=== PATIENT | male | born 1955 | race Caucasian/White ===

== ENCOUNTER 2016-08-06 13:20 | Inpatient (IN) | payer OTHER ==
[~2016-08-06] VITALS: Ht 190.5 cm; Wt 111.8 kg
--- NOTE | ~2016-08-06 | CATH ---
Cardiac Diagnostic Report Demographics Patient Name DIANE Arvizu Gender Male Date of 1955 Age 61 year(s) Patient Number [id number] Date of Study 08/06/2016 Visit Number [id number] Room Number 308 Corporate ID Ht 190.5 cm Wt 113.4 kg Accession Number [id number] BSA 2.41 m kg/m Referring Glenda Moser MD Primary Physician Physician Paula Mcginnis MD Performing Paula Mcginnis MD Secondary Physician Physician Diagnostic Paula Mcginnis MD Assisting Physician Physician Interventional Physician Tenter Frame Back Tender Physician Findings and Conclusions Diagnostic Findings and Conclusion Normal coronary arteries. Normal LVEDP. Diagnostic Recommendations Workup further etiology of vtach. Procedure Description The patient was brought to the diagnostic cardiac catheterization laboratory in the fasting, non-sedated state. Informed consent was obtained in the written and verbal form after the risks and benefits were explained. The patient had no further questions and agreed to proceed. The planned puncture-incision site(s) were clipped and prepped with ChloraPrep and draped in the usual sterile manner. Conscious sedation, supplemental oxygen, and pain control medications were delivered by a registered nurse under physician guidance. Surface ECG rhythm, blood pressure measurement, and pulse oximetry were monitored throughout the procedure. Arterial access. Theright radial access site was infiltrated with lidocaine. The vessel was entered with the Seldinger technique. A 6F sheath was advanced into the vessel and used for catheter placement. Selective left coronary angiography. A JL3.5 catheter was advanced into the left coronary vessel ostium under Fluoroscopic guidance. Contrast was injected by hand. Images were obtained in multiple projections. Selective right coronary angiography. A JR4 catheter was advanced into the right coronary vessel ostium under fluoroscopic guidance. Contrast was injected by hand. Images were obtained in multiple projections. Left heart catheterization with ventriculography. An angled pigtail catheter was advanced across the aortic valve to the left ventricle under fluoroscopic guidance. Resting hemodynamics were obtained. With the catheter at the left ventricular apex, contrast was injected. Images were obtained in NAMIBIAN projections. Post-ventriculography LV pressure was obtained. The catheter was gradually withdrawn into the aorta with continuous pressure recording. Hemostasis: The sheath was removed and a TR Band was placed. Hemostasis was achieved. The patient was transferred to the ICU nursing floor via cart accompanied by a nurse. The patient left the laboratory in stable condition. Procedure Procedure Type Diagnostic procedure:Ventriculogram:, Left, Angiography:, Coronary Angios w/[facility] The procedure was explained in detail to the patient. Risks, complications and alternative treatments were reviewed. Written consent was obtained. Medications Reviewed with Patient prior to Procedure. Complications: No Complication. Angiographic Findings Dominance: Right Cardiac Arteries and Lesion Findings LMCA: Normal (0% Stenosis). LAD: Normal (0% Stenosis). LCx: Normal (0% Stenosis). RCA: Normal (0% Stenosis). Procedure Data Procedure Date Date: 08/06/2016Start: 03:20 PMEnd: 03:55 PM Entry Locations - Percutaneous access was performed through the Right Radial artery (Primary location). A 6 Fr sheath was inserted. Hemostasis was successfully obtained using a TR band. Procedure Medications Order and Administration + + +-------+-------+ !Time !Medication !Dosage !Route ! + + +-------+-------+ !08/06/2016 !Versed !1 mg !I.V. ! !03:22 PM ! ! ! ! + + +-------+-------+ !08/06/2016 !Fentanyl !50 mcg !I.V. ! !03:22 PM ! ! ! ! + + +-------+-------+ !08/06/2016 !Sodium Chloride !10 ml !I.V. ! !03:22 PM ! ! ! ! + + +-------+-------+ !08/06/2016 !SF Radial Cocktail: 200mcg Nitro, 2.5 mg ! !I.A. ! !03:22 PM !Verapamil, 5000u Heparin ! ! ! + + +-------+-------+ Devices Used - A6 FrCATH 6FR FL3.5 CATHETER 100CMwas used for:LeftsideCoronary Angios. - A5.5 FrCATH 6F FR4 CATHETER 100CMwas used for:RightsideCoronary Angios. - A6 FrCATH 6FR PIG 145 110CM CATHETERwas used for:LeftsideLV Pressures. Contrast Material - Isovue 69842 ml Fluoroscopy Time: Diagnostic: 5:06 minutes. Total: 5:06 minutes. Fluoroscopy Dose: Diagnostic: 796 mGy. Total: 796 mGy. Estimated Blood Loss: 8 ml. Medical History Allergies - No known allergies. Risk Factors The patient risk factors include:diabetes mellitus, last creatinine: 1.3 mg/dl and creatinine clearance: 93.29 ml/min. Admission Data Admission Date: 08/06/2016 Admission Time: 04:09 PM Insurance Payors: None. VA LV function assessed as:Normal. Ejection Fraction - 08/06/2016 - Method: LV gram. EF%: 65. LVA Segment Contractility 1 - Normal 3 - Mild 5 - Severe 7 - Dyskinesis hypokinesis hypokinesis 2 - 4 - Moderate 6 - Akinesis 8 - Aneurysm Hypokinesis hypokinesis Hemodynamics Condition: Rest O2 Consumption: Estimated: 290.37Heart Rate: 79 bpm Pressures (mmHg) +-----+ + !Site !Pressure ! +-----+ + !AO !111/76 (92) ! +-----+ + !LV !112/6 ,33 ! +-----+ + !LV !122/5 ,13 ! +-----+ + !LV !117/6 ,13 ! +-----+ + !AO !112/65 (85) ! +-----+ + !LV !113/5 ,11 ! +-----+ + Valve Gradients and Areas + +---------+---------+---------+ +---------+ + !Valve !Peak !Mean !Area !Index !Flow !Source ! + +---------+---------+---------+ +---------+ + !Aortic !0 !0 ! ! ! ! ! + +---------+---------+---------+ +---------+ + !Aortic !0 !0 ! ! ! ! ! + +---------+---------+---------+ +---------+ + Shunts Oxygen Values O2 Capacity 195.84 O2 Consumption 290.37 Discharge Data Discharge Date: 08/08/2016 Hospital Status: Inpatient Signatures
--- NOTE | ~2016-08-06 | ECH ---
Transthoracic Echocardiography Report (TTE) Demographics Patient Name ALISSA CONTRERAS Date of Study 08/07/2016 Patient Number [id number] Visit Number [id number] Date of 1955 Room Number 308 Accession Number [id number] Gender Male Age 61 year(s) Referring Glenda Moser MD Converter Skimmer Mary Mane [facility] Physician Physician Jen Thornton MD Research Electrician Physician Hero Supervising Ordering Physician Paula Mcginnis MD, MD/P Nurse Stress Scrap Charger Conclusions Contractility Score Summary Normal Left Ventricular contractility was noted. Summary Technically adequate exam. The estimated left ventricular ejection fraction is 50-55%. Mild left ventricular hypertrophy. Diastolic assessment reveals Grade II pseudonormal diastolic function . The left atrium is moderately dilated by LA volume index measurement. Mild tricuspid regurgitation by color Doppler. There is mild pulmonary hypertension. The pulmonary pressure (RVSP) is 35 mmHg. Recommendation The patient was given the results of the exam during their hospital stay. Procedure Type of Study TTE procedure:Echo Complete SF. Procedure Date Date: 08/07/2016 Start: 09:43 AM End: 10:13 AM Technical Quality: Adequate visualization Indications:Ventricular Tachycardia. Appropriate Use Criteria: 9 Height: 75 inches Weight: 250 pounds BSA: 2.41 m Rhythm: Within normal limits HR: 67 bpm BP: 142/87 mmHg Allergies - No known allergies. M-Mode/2D Measurements LV Diastolic Dimension: 5.02 cm LV Systolic Dimension: 3.43 cm LV Septum Diastolic: 1.08 cm LV PW Diastolic: 1.17 cm AO Root Dimension: 2.92 cm Cardiac Output: 4.86 l/min LA Dimension: 4.38 cm Cardiac Index: 2.02 l/min*m RV Diastolic Dimension: 4.18 cm LA volume index: 42 ml/m LVOT: 2.46 cm IVC Inspiration: 1.96 cm LVOT VTI: 15.28 cm RV Base: 3.99 cm LV Stroke volume: 72.59 ml RV Mid: 3.48 cm LV Stroke volume index: 30.12 ml/m RV Length: 7.5 cm TAPSE: 2.5 cm Doppler Measurements AV Peak Velocity: 1.3 m/s MV Peak E-Wave: 0.77 m/s AV Peak Gradient: 6.76 mmHg MV Peak A-Wave: 0.55 m/s AV Mean Gradient: 4.35 mmHg MV E/A Ratio: 1.39 LVOT Peak Velocity: 0.83 m/s MV P1/2t: 54.9 msec AV Area (Continuity):2.87 cm MV Deceleration Time: 182.3 msec TR Velocity:2.63 m/s MV Area (PHT): 4.01 cm TR Gradient:27.62 mmHg PV Peak Velocity: 0.97 m/s Estimated RAP:8 mmHg PV Peak Gradient: 3.77 mmHg Estimated RVSP: 36 mmHg Estimated PASP: 35.62 mmHg RA Area: 15.72 cm Findings Left Ventricle The left ventricle is normal in size . Mild left ventricular hypertrophy. Diastolic assessment reveals Grade II pseudonormal diastolic function . Right Ventricle Normal right ventricle structure and function. Left Atrium The left atrium is moderately dilated by LA volume index measurement. Right Atrium Normal right atrial size. Mitral Valve Mild thickening of the mitral valve leaflets. Trivial mitral regurgitation by color Doppler. Aortic Valve The aortic valve is mildly sclerotic. Tricuspid Valve Normal appearing tricuspid valve. Mild tricuspid regurgitation by color Doppler. There is mild pulmonary hypertension. The pulmonary pressure (RVSP) is 35 mmHg. Pulmonic Valve Normal pulmonic valve structure and function. Pericardial Effusion No evidence of pericardial effusion. Miscellaneous Visualized portions of the aortic root and ascending aorta appear normal in size. Pleural Effusion No evidence of pleural effusion. Contractility Score LV regional wall motion:(0-Non visualized 1-Normal 2-Hypokinesis 3-Akinesis 4-Dyskinesis 5-Aneurysm) Signature
[2016-08-10] MEDS ORDERED: ZYLOPRIM-DPS100 MG PO (07:25)
[2016-08-10] MEDS ORDERED: DAILY MULTIPLE1 EAC1 PO (07:25)
[2016-08-10] MEDS ORDERED: GLUCOPHAGE-DPS500 MG PO (07:25)
[2016-08-10] MEDS ORDERED: BYSTOLIC5 MG PO (07:26)
[2016-08-10] MEDS ORDERED: TAMBOCOR DPS50 MG PO (07:26)
--- NOTE | 2016-08-10 11:56 | CO ---
ADMIT: 08/06/2016 RM/LOC: 308 [facility] MR#: [id number] [address] [place], [place] [address] ALISSA CONTRERAS [address] [place] [address] Consultation SEX: M AGE: 61 : 1955 DATE OF CONSULTATION: 08/06/2016 ATTENDING PHYSICIAN: Timothy Doshi CONSULTING PHYSICIAN: Jesse Mitchell MD REASON FOR CONSULT: Ventricular tachycardia. Alexandria Tomas RN, scribing for Dr. Ras Mitchell. HISTORY OF PRESENT ILLNESS: Alissa is a pleasant 61-year-old gentleman I have been asked to see in Cardiology consultation by Dr. Doshi for recurrent VT. Alissa has no prior history of coronary artery disease. He does have history of diabetes and takes oral medication for that. 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 Alissa presented to [facility] Emergency Room today with complaints of lightheadedness, loss of balance, and vision loss. He also describes left arm pain. He states that this had never happened before, however, today off and on throughout the day. He has had episodes where he has felt his heart racing, he has lost vision, and felt left arm pain at that time as well. He stated that after lunch today, he was walking with some clients outside when he lost his balance, they had to catch him. He felt lightheaded, but he did not lose consciousness. He lost vision at that time. He called his primary care physician who encouraged him to go to the emergency room. He also reports he was short of breath at that time. Currently, he denies any pain or shortness of breath unless he is having run of VT. In the ER, on monitoring, he has had multiple episodes of runs of ventricular tachycardia up to 10 beats. He has been given a bolus of amiodarone and they have ordered a drip to get started as well. His lab work has been essentially unremarkable. PAST MEDICAL HISTORY: Diabetes and gout. PAST SURGICAL HISTORY: Left total knee arthroplasty three years ago. ALLERGIES: NO KNOWN MEDICATION ALLERGIES. MEDICATIONS: Current medications include metformin 500 p.o. b.i.d., allopurinol 100 p.o. daily. FAMILY HISTORY: Positive family history, father having multiple myocardial infarctions. He felt he had five before he , and mom had coronary artery disease as well as valvular disease. SOCIAL HISTORY: Alissa is . He has three boys and four grand kids. He drinks about a pot of coffee a day. He denies any special diet at home. He denies any alcohol, tobacco, or drug use. He quit smoking about 8 years ago after 20 years of smoking cigarettes, and multiple drugs, he quit about 10 years ago. He denies any alcohol for about 10 years as well. ADMIT: 08/06/2016 RM/LOC: 308 [facility] MR#: [id number] [address] [place] [id number] ALISSA CONTRERAS [address] [place] [address] Consultation SEX: M AGE: 61 : 1955 REVIEW OF SYSTEMS: GENERAL: Denies fatigue, fever, chills, sweats, rash, or weight loss. EYES: History of cataracts and glasses. ENT: Denies hearing loss or problems with nose, mouth or throat. PULMONARY: Denies cough, sputum production, asthma, emphysema or bronchitis. Denies snoring loudly, wakefulness at night, or fatigue upon awakening. GASTROINTESTINAL: Denies heartburn or difficulty swallowing. No change in bowel habits. Denies dark or bloody stools. No history of ulcers, hiatal hernia, or gallbladder or liver disease. GENITOURINARY: Denies dysuria, hematuria, nocturia, urinary tract infection, or kidney stones. Denies history of renal insufficiency or failure. MUSCULOSKELETAL: History of osteoarthritis and gout. ENDOCRINE: Positive for diabetes. Denies thyroid disease. HEMATOLOGIC: Denies history of anemia, easy bruising, or cancer. NEUROLOGIC: Denies chronic headaches, dizziness, syncope, stroke, seizures or numbness or tingling. PSYCHIATRIC: Denies history of mental illness or feelings of depression. PHYSICAL EXAMINATION: VITAL SIGNS: Blood pressure 155/86, heart rate 96, respirations 16, temperature 99.9, oxygenation 98% on O2. SKIN: [place], warm and dry. EYES: Sclerae clear. No xanthelasmas. ENT: Oral mucosa is pink and moist. No jugular venous distention or carotid bruits. CHEST: Respirations are even and unlabored. Lungs are clear to auscultation. HEART: Regular rate and rhythm. Normal S1, S2. No murmurs, rubs or gallops. ABDOMEN: Soft and nontender. MUSCULOSKELETAL: Gait is normal. EXTREMITIES: Peripheral pulses palpable. No clubbing, cyanosis or edema. PSYCHIATRIC: Alert and oriented. Mood and affect are appropriate. DIAGNOSTIC DATA: Sodium 139, potassium 3.9, BUN 17, creatinine 1.3, glucose 136. White blood cell count 9.1, hemoglobin 14.4, hematocrit 41.8, platelets 253. Magnesium 2.2. Troponin less than 0.015. TSH 2.51. ASSESSMENT AND PLAN: 1. Nonsustained ventricular tachycardia. 2. Near syncope. 3. Diabetes mellitus. 4. Gout. Alissa's QTC and EKG is less than 500 with his diabetes history, family history, tobacco history, and left arm pain. I would recommend having cardiac catheterization performed to rule out ischemia with his frequent runs of nonsustained VT. I would like to give him 5 mg IV Lopressor and starting amiodarone drip at this time. I discussed with the patient the risks, benefits, and alternatives of the procedure with risks including, but not limited to bleeding, infection, vessel damage, reaction to contrast dye, ADMIT: 08/06/2016 RM/LOC: 308 [facility] MR#: [id number] [address] [facility] [address] [place] [id number] ALISSA CONTRERAS [address] [place] [address] Consultation SEX: M AGE: 61 : 1955 stroke, myocardial infarction, rarely loss of life. Alissa states understanding and wishes to proceed. I will make final recommendations pending catheterization results. Thank you for the consultation. "I have read and agree with the documentation that has been completed regarding this visit. By signing this record, I attest that the documentation was completed in my physical presence and is an accurate record of the encounter." Alexandria Tomas RN / Jesse Mitchell MD / don JOB #: [id number] CC: Tmiothy Doshi, Attending Physician Timothy Doshi, Family Physician Timothy Doshi MD
--- NOTE | 2016-08-18 08:25 | ER ---
ADMIT: 08/06/2016 RM/LOC: 308 [facility] MR#: [id number] [address] [facility] [address] [place], [place] [address] ALISSA CONTRERAS [address] [place] [address] Emergency Room Report SEX: M AGE: 61 : 1955 DATE: 08/06/2016 ADDENDUM: A 61-year-old white male coming in with kind of nonspecific symptoms. [place] a little dizzy, could not see. Little episode, this would come and go. While he was here, we did catch the reason why he had the symptoms. He had several runs of nonsustained ventricular tachycardia. He was given 150 of amiodarone. Lab and chest x-ray are pending. The EKG, we did catch him a couple of times in his V-tach. I spoke with Dr. Thornton, who will come down to see him along with Dr. Doshi, his attending, who will see him in the hospital. CONDITION ON DISCHARGE: Critical, but stable at this time. Demetris Montesinos MD/ don JOB #: [id number] CC: Timothy Doshi MD, Attending Physician Timothy Doshi MD, Family Physician
--- NOTE | 2016-09-07 14:31 | DS ---
ADMIT: 08/06/2016 RM/LOC: 308 [facility] MR#: [id number] [address] [facility] [address] [place], [place] [address] ALISSA CONTRERAS [address] [place] [address] General Discharge Summary SEX: M AGE: 61 : 1955 CORRECTED: 08/28/20162013 AJ ADMISSION DATE: 08/06/2016 DISCHARGE DATE: 08/08/2016 Alexandria Tomas RN, scribing for Dr. Ras Mitchell. REASON FOR ADMISSION: Nonsustained ventricular tachycardia. PROCEDURES PERFORMED: 1. On 08/06/[address] Ras Mitchell, left heart cardiac catheterization demonstrating normal coronary arteries. 2. On 08/07/2016 echocardiogram showing ejection fraction of 50%-55%, mild LVH. FINAL DIAGNOSES: 1. RVOT tachycardia. 2. Near syncope. 3. Normal coronary arteries. DISCHARGE MEDICATION: Included: 1. Metformin 500 mg twice daily. 2. Allopurinol 100 mg daily. 3. Multivitamin 1 tab daily. 4. Bystolic 5 mg daily. 5. Tambocor 50 mg p.o. b.i.d. I have read and agree with the documentation that has been completed regarding this visit. By signing this record, I attest that the documentation was completed in my physical presence and is an accurate record of the encounter. Alexandria Tomas RN / Jesse Mitchell MD / don JOB #: [id number] CC: Timothy Doshi MD, Attending Physician Timothy Doshi MD, Family Physician CORRECTED: 08/28/20162013 TINO
== END 2016-08-08 10:05 | disposition home or self-care (01) | DRG 287 ==
LOC: ER 13:20 → SSS 14:45 → 3ICU 16:09
PROVIDERS: ADMIT Family Medicine
PROC: 4A023N7 Measurement of Cardiac Sampling and Pressure, Left Heart, Percutaneous Approach (ICD-10-PCS; principal; 2016-08-06)
PROC: B2111ZZ Fluoroscopy of Multiple Coronary Arteries using Low Osmolar Contrast (ICD-10-PCS; principal; 2016-08-06)
PROC: B2151ZZ Fluoroscopy of Left Heart using Low Osmolar Contrast (ICD-10-PCS; principal; 2016-08-06)
DX: I47.2 Ventricular tachycardia (principal); E11.9 Type 2 diabetes mellitus without complications; M10.9 Gout, unspecified; M19.90 Unspecified osteoarthritis, unspecified site; Z79.84 Long term (current) use of oral hypoglycemic drugs; Z87.891 Personal history of nicotine dependence; Z82.49 Family history of ischemic heart disease and other diseases of the circulatory system; Z96.652 Presence of left artificial knee joint

== ENCOUNTER 2016-08-24 12:17 | Emergency (ER) | payer OTHER ==
[~2016-08-24 12:17] MED LIST: BYSTOLIC5 MG PO; DAILY MULTIPLE1 EAC1 PO; GLUCOPHAGE-DPS500 MG PO; TAMBOCOR DPS50 MG PO; ZYLOPRIM-DPS100 MG PO
--- NOTE | 2016-08-30 09:21 | ER ---
ADMIT: 08/24/2016 RM/LOC: ER [facility] MR#: [id number] [address] [facility] [address] [place], [place] [address] ALISSA CONTRERAS [address] [place] [id number] Emergency Room Report SEX: M AGE: 61 : 1955 DATE: 08/24/2016 ADDENDUM: See T sheet for complete H and P. Patient is a 61-year-old gentleman who comes in complaining of some palpitations, rapid heart rate, and feeling short of breath. These were same symptoms that he had for hospitalization about 2 weeks ago. 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 He had worn a heart monitor for a week and is not currently having it on. He has had no chest pain whatsoever during this event. We did check some labs here and his CBC and chemistries and troponin were normal. He had an EKG done which showed a little OR prolongation, but otherwise EKG is unremarkable. He was on the monitor while here and had no further events. I contacted Cardiology as he had recently been evaluated by them during this hospitalization and Dr. Mitchell saw the patient in the ER. Dr. Mitchell recommends that he will increase his dose of flecainide and he is to follow up as scheduled with electrophysiology. The patient is also given instructions that if any worsening or concerning symptoms occur, he can return to the ER. DIAGNOSES: 1. Palpitations. 2. Right ventricular outflow tract tachycardia. Unruly Zarate MD/ don JOB #: [id number] CC: Unruly Zarate MD, Attending Physician UNKNOWN, Family Physician
== END 2016-08-24 15:17 | disposition home or self-care (01) ==
LOC: ER 12:17
DX: I47.2 Ventricular tachycardia (principal); R00.2 Palpitations; E11.9 Type 2 diabetes mellitus without complications; M10.9 Gout, unspecified; Z79.84 Long term (current) use of oral hypoglycemic drugs